=== PATIENT | male | born 1990 | race Two or more races ===

== ENCOUNTER 2023-01-09 18:20 | Inpatient (IN) | payer OTHER ==
[~2023-01-09] VITALS: Ht 182.9 cm; Wt 88.4 kg
[2023-01-09] MEDS ORDERED: PANTOPRAZOLE 40 MG/10 ML VIAL INJ IV ONE (19:00)
[2023-01-09] MEDS ORDERED: MORPHINE SULFATE 4 MG/ML SYR/VIAL IV ONE (19:00)
[2023-01-09] MEDS ORDERED: ONDANSETRON HCL 4 MG/2 ML VIAL IV ONE (19:00)
[2023-01-09] MEDS ORDERED: SODIUM CHLORIDE 0.9% 1,000 ML IVB ONE (19:00)
[2023-01-09 19:24] LABS: Basophils # (auto) 0 10 ^3/uL (0-0.2); Basophils % (auto) 0.3 % (0.0-2.0); Eosinophils # (auto) 0 10 ^3/uL (0-0.8); Eosinophils % (auto) 0.2 % (0.0-7.0); Hematocrit 44.6 % (41.0-53.0); Hemoglobin 15.6 g/dL (13.5-17.5); Lymphocytes # (auto) 2.7 10 ^3/uL (0.4-5.4); Lymphocytes % (auto) 32.2 % (10.0-50.0); Mean Corpuscular Hemoglobin 30.2 pg (28.0-32.0); Mean Corpuscular Volume 86.3 fL (80.0-100.0); Monocytes # (auto) 0.6 10 ^3/uL (0-1.3); Monocytes % (auto) 7.1 % (0.0-12.0); Neutrophils # (auto) 5.1 10 ^3/uL (1.6-8.6); Neutrophils % (auto) 60.2 % (37.0-80.0); Nucleated Red Blood Cells % 0.4 %; Red Blood Cells 5.17 10^6/uL (4.5-5.90); Red Cell Distribution Width 12.8 % (11.8-14.3); White Blood Cell 8.5 10^3/uL (4.4-10.8)
[2023-01-09 19:45] LABS: Albumin 4.4 g/dL (3.4-5.0); Calcium 9.8 mg/dL (8.5-10.1); Magnesium 1.8 mg/dL (1.6-2.6); Potassium 3.8 mmol/L (3.5-5.1)
[2023-01-09 20:06] LABS: BUN/Creatinine Ratio 13.3 (10.0-20.0); Bilirubin, Total 1.4 mg/dL (0.2-1.0); Total Protein 8.3 g/dL (6.4-8.2)
[2023-01-09] MEDS ORDERED: MORPHINE SULFATE INJ 2 MG/ml SYRG IV PRN (22:30)
[2023-01-09] MEDS ORDERED: HYDROcodone-ACET 10/325MG TAB PO PRN (22:30)
[2023-01-09] MEDS ORDERED: NITROGLYCERIN 0.4 MG SL TAB SL PRN (22:30)
[2023-01-10] MEDS: D5W/SOD CHL 0.45% 1,000 ML IV SCH ×5 (02:47→21:47)
[2023-01-10 05:29] LABS: Basophils # (auto) 0 10 ^3/uL (0-0.2); Basophils % (auto) 0.5 % (0.0-2.0); Eosinophils # (auto) 0 10 ^3/uL (0-0.8); Eosinophils % (auto) 0.6 % (0.0-7.0); Hematocrit 41.6 % (41.0-53.0); Hemoglobin 14.3 g/dL (13.5-17.5); Lymphocytes # (auto) 2.7 10 ^3/uL (0.4-5.4); Lymphocytes % (auto) 40.4 % (10.0-50.0); Mean Corpuscular Hemoglobin 30.2 pg (28.0-32.0); Mean Corpuscular Hgb Conc. 34.5 g/dL (32.0-36.0); Mean Corpuscular Volume 87.7 fL (80.0-100.0); Monocytes # (auto) 0.6 10 ^3/uL (0-1.3); Neutrophils # (auto) 3.3 10 ^3/uL (1.6-8.6); Neutrophils % (auto) 49.5 % (37.0-80.0); Nucleated Red Blood Cells % 0.1 %; Red Blood Cells 4.75 10^6/uL (4.5-5.90); Red Cell Distribution Width 12.5 % (11.8-14.3); White Blood Cell 6.7 10^3/uL (4.4-10.8)
[2023-01-10 05:38] LABS: INR 1.13 (0.9-1.15); Partial Thromboplastin Time 31.6 sec (24.6-33.4)
[2023-01-10 05:41] LABS: Calcium 8.7 mg/dL (8.5-10.1); Potassium 4.4 mmol/L (3.5-5.1)
[2023-01-10 05:47] LABS: Albumin 3.6 g/dL (3.4-5.0); BUN/Creatinine Ratio 15.5 (10.0-20.0); Bilirubin, Total 1.7 mg/dL (0.2-1.0); Total Protein 7.2 g/dL (6.4-8.2)
[2023-01-10] MEDS: PANTOPRAZOLE 40 MG/10 ML VIAL INJ IV SCH ×2 (09:42→21:46)
[2023-01-10 11:06] LABS: Urine WBC None Seen /hpf (0 - 3)
[2023-01-10 11:15] LABS: Urine Bacteria NONE SEEN /hpf (None Seen); Urine Blood Negative /uL (Negative); Urine Specific Gravity 1.008 (1.001-1.035)
[2023-01-10 11:39] LABS: Alcohol, Urine < 3.0 mg/dL (0-10); Barbiturate Scree,Urine NEGATIVE (NEGATIVE); Benzodiazephine Screen, Urine NEGATIVE (NEGATIVE); Cannabinoid Screen, Urine NEGATIVE (NEGATIVE); Cocaine Screen, Urine NEGATIVE (NEGATIVE); Opiate Scree,Urine NEGATIVE (NEGATIVE)
[2023-01-10 11:42] LABS: Amphetamine Screen, Urine NEGATIVE (NEGATIVE); Phencyclidine Screen, Urine NEGATIVE (NEGATIVE)
[2023-01-10] MEDS ORDERED: traMADol HCL 50 MG TAB PO PRN (15:30)
[2023-01-10] MEDS ORDERED: OMEP-335 PO (15:55)
[2023-01-10 16:45] VITALS: BP 138/74
[2023-01-10 20:00] VITALS: BP 122/74
[2023-01-10] MEDS: HYDROmorphone HCL 2 MG/ML VL/or syr IV PRN (20:46)
[2023-01-10 22:00] VITALS: BP 122/74
[2023-01-11 05:00] VITALS: BP 115/73
[2023-01-11] MEDS: D5W/SOD CHL 0.45% 1,000 ML IV SCH ×2 (05:08→13:37)
[2023-01-11 05:18] LABS: Basophils # (auto) 0 10 ^3/uL (0-0.2); Basophils % (auto) 0.3 % (0.0-2.0); Eosinophils # (auto) 0 10 ^3/uL (0-0.8); Eosinophils % (auto) 0.6 % (0.0-7.0); Hematocrit 41.3 % (41.0-53.0); Hemoglobin 14.4 g/dL (13.5-17.5); Lymphocytes # (auto) 2.2 10 ^3/uL (0.4-5.4); Lymphocytes % (auto) 35.3 % (10.0-50.0); Mean Corpuscular Hemoglobin 30.3 pg (28.0-32.0); Mean Corpuscular Hgb Conc. 34.8 g/dL (32.0-36.0); Monocytes # (auto) 0.5 10 ^3/uL (0-1.3); Monocytes % (auto) 7.6 % (0.0-12.0); Neutrophils # (auto) 3.6 10 ^3/uL (1.6-8.6); Neutrophils % (auto) 56.2 % (37.0-80.0); Nucleated Red Blood Cells % 0.2 %; Red Blood Cells 4.75 10^6/uL (4.5-5.90); Red Cell Distribution Width 12.5 % (11.8-14.3); White Blood Cell 6.3 10^3/uL (4.4-10.8)
[2023-01-11 05:30] LABS: INR 1.13 (0.9-1.15); Partial Thromboplastin Time 30.3 sec (24.6-33.4)
[2023-01-11 05:36] LABS: Albumin 3.6 g/dL (3.4-5.0); BUN/Creatinine Ratio 10.2 (10.0-20.0); Potassium 3.9 mmol/L (3.5-5.1)
[2023-01-11 05:38] LABS: Bilirubin, Total 1.6 mg/dL (0.2-1.0); Total Protein 7.3 g/dL (6.4-8.2)
[2023-01-11] MEDS ORDERED: GASTROGRAFIN 30 ML SOL ONE (06:32)
[2023-01-11] MEDS ORDERED: IOHEXOL 300 MG/ML 100ML BOTTLE IJ ONE (08:24)
[2023-01-11 08:53] VITALS: BP 121/71
[2023-01-11] MEDS: PANTOPRAZOLE 40 MG/10 ML VIAL INJ IV SCH ×2 (09:39→21:57)
[2023-01-11] MEDS: ONDANSETRON HCL 4 MG/2 ML VIAL IV PRN (09:48)
[2023-01-11] MEDS: HYDROmorphone HCL 2 MG/ML VL/or syr IV PRN ×2 (09:49→22:08)
[2023-01-11 13:00] VITALS: BP 104/64
[2023-01-11 17:13] VITALS: BP 113/77
[2023-01-11 20:00] VITALS: BP 122/74
[2023-01-11 22:00] VITALS: BP 130/76
[2023-01-12 05:00] VITALS: BP 126/78
[2023-01-12 05:41] LABS: Basophils # (auto) 0 10 ^3/uL (0-0.2); Basophils % (auto) 0.3 % (0.0-2.0); Eosinophils # (auto) 0.1 10 ^3/uL (0-0.8); Eosinophils % (auto) 1.6 % (0.0-7.0); Hematocrit 40.6 % (41.0-53.0); Hemoglobin 14.3 g/dL (13.5-17.5); Lymphocytes # (auto) 2.5 10 ^3/uL (0.4-5.4); Lymphocytes % (auto) 37.3 % (10.0-50.0); Mean Corpuscular Hemoglobin 30.7 pg (28.0-32.0); Mean Corpuscular Hgb Conc. 35.1 g/dL (32.0-36.0); Mean Corpuscular Volume 87.5 fL (80.0-100.0); Monocytes # (auto) 0.5 10 ^3/uL (0-1.3); Monocytes % (auto) 7.8 % (0.0-12.0); Neutrophils # (auto) 3.5 10 ^3/uL (1.6-8.6); Nucleated Red Blood Cells % 0.1 %; Red Blood Cells 4.64 10^6/uL (4.5-5.90); Red Cell Distribution Width 12.6 % (11.8-14.3); White Blood Cell 6.6 10^3/uL (4.4-10.8)
[2023-01-12 05:48] LABS: INR 1.14 (0.9-1.15); Partial Thromboplastin Time 32.7 sec (24.6-33.4)
[2023-01-12 05:56] LABS: Potassium 3.7 mmol/L (3.5-5.1)
[2023-01-12 06:13] LABS: Albumin 3.8 g/dL (3.4-5.0); BUN/Creatinine Ratio 8.6 (10.0-20.0); Bilirubin, Total 2.1 mg/dL (0.2-1.0); Total Protein 7.3 g/dL (6.4-8.2)
[2023-01-12] MEDS: HYDROmorphone HCL 2 MG/ML VL/or syr IV PRN (06:54)
[2023-01-12 08:00] VITALS: BP_SYST 114; BP_SYST 131; BP_DIAS 77; BP_DIAS 90
[2023-01-12] MEDS ORDERED: EZ PAQUE SUSP 12OZ BTL ONE (08:18)
[2023-01-12] MEDS ORDERED: GASTROGRAFIN 120 ML SOL ONE ×2 (08:18→08:23)
[2023-01-12] MEDS ORDERED: EZ-GAS II GRANULES (RADIOLOGY USE) PO ONE (08:19)
[2023-01-12] MEDS: PANTOPRAZOLE 40 MG/10 ML VIAL INJ IV SCH ×2 (10:09→22:24)
[2023-01-12 12:00] VITALS: BP 128/74
[2023-01-12 12:17] LABS: Hepatitis A Ab IgM Negative; Hepatitis B Core IgM Negative; Hepatitis C Antibody Negative (Negative)
[2023-01-12] MEDS ORDERED: traMADol HCL 50 MG TAB PO PRN (14:00)
[2023-01-12 16:00] VITALS: BP 126/80
[2023-01-12 20:00] VITALS: BP 122/74
[2023-01-12] MEDS: ONDANSETRON HCL 4 MG/2 ML VIAL IV PRN (20:37)
[2023-01-12] MEDS ORDERED: methylPREDNISolone SOD SUCC 125 MG/2 ML VL IV ONE (21:00)
[2023-01-12] MEDS ORDERED: HYDROcodone-ACET 10/325MG TAB PO PRN (21:00)
[2023-01-12] MEDS ORDERED: diphenhdrAMINE HCL 50 MG/1 ML VL IV PRN (21:00)
[2023-01-12] MEDS ORDERED: methylPREDNISolone SOD SUCC 40 MG/ML VL ONE (21:07)
[2023-01-12 22:00] VITALS: BP_SYST 122; BP_SYST 141; BP_DIAS 78; BP_DIAS 86
[2023-01-13] MEDS ORDERED: diphenhdrAMINE HCL 50 MG/1 ML VL IV ONE
[2023-01-13 05:00] VITALS: BP 120/75
[2023-01-13 06:36] LABS: Basophils # (auto) 0 10 ^3/uL (0-0.2); Basophils % (auto) 0.1 % (0.0-2.0); Eosinophils # (auto) 0 10 ^3/uL (0-0.8); Hematocrit 44.6 % (41.0-53.0); Hemoglobin 15.7 g/dL (13.5-17.5); Lymphocytes # (auto) 0.7 10 ^3/uL (0.4-5.4); Lymphocytes % (auto) 10.4 % (10.0-50.0); Mean Corpuscular Hemoglobin 30.7 pg (28.0-32.0); Mean Corpuscular Hgb Conc. 35.3 g/dL (32.0-36.0); Mean Corpuscular Volume 87.1 fL (80.0-100.0); Monocytes # (auto) 0 10 ^3/uL (0-1.3); Monocytes % (auto) 0.6 % (0.0-12.0); Neutrophils # (auto) 5.7 10 ^3/uL (1.6-8.6); Neutrophils % (auto) 88.9 % (37.0-80.0); Nucleated Red Blood Cells % 0.1 %; Red Blood Cells 5.12 10^6/uL (4.5-5.90); Red Cell Distribution Width 12.6 % (11.8-14.3); White Blood Cell 6.4 10^3/uL (4.4-10.8)
[2023-01-13 06:44] LABS: Potassium 4.5 mmol/L (3.5-5.1)
[2023-01-13 06:50] LABS: Albumin 4.1 g/dL (3.4-5.0); BUN/Creatinine Ratio 13.1 (10.0-20.0); Calcium 9.7 mg/dL (8.5-10.1)
[2023-01-13 06:53] LABS: Bilirubin, Total 1.4 mg/dL (0.2-1.0); Total Protein 8.4 g/dL (6.4-8.2)
[2023-01-13 07:57] LABS: INR 1.08 (0.9-1.15); Partial Thromboplastin Time 30.7 sec (24.6-33.4)
[2023-01-13 08:00] VITALS: BP 127/81
[2023-01-13] MEDS: PANTOPRAZOLE 40 MG/10 ML VIAL INJ IV SCH (10:34)
[2023-01-13 12:00] VITALS: BP 124/69
[2023-01-13] MEDS ORDERED: PANT40TA2 PO (13:16)
== END 2023-01-13 14:45 | DRG 392 ==
LOC: EEVIPCON 18:20 → ER 18:20 → OVERFLOW 22:31 → CENTRAL 01-10 14:43
PROVIDERS: ADMIT Internal Medicine; ATTEND Internal Medicine
DX: K29.70 Gastritis, unspecified, without bleeding (principal); K75.9 Inflammatory liver disease, unspecified; I10 Essential (primary) hypertension; Z20.822 Contact with and (suspected) exposure to COVID-19; Z82.49 Family history of ischemic heart disease and other diseases of the circulatory system; Z87.891 Personal history of nicotine dependence
CPT/HCPCS: 36415; 74178; 74246; 76705; 80053; 80074; 80307; 81001; 82270; 83690; 83735; 85025; 85610; 85730; 87426; 96374; 96375; C9113; G0378; J2405